=== PATIENT | female | born 1995 | race Caucasian/White ===

== ENCOUNTER 2023-12-11 16:52 | Outpatient (CLI) | payer OTHER ==
--- NOTE | 2023-12-12 06:19 | XRAY Report ---
PROCEDURE: Ankle 3+V RT INDICATIONS: EFFUSION OF RT ANKLE TECHNIQUE: 3 views of the ankle were acquired. COMPARISON: None. FINDINGS: Bones: No fractures or dislocations. Ankle mortise is normally aligned. No suspicious bony lesions . Soft tissues: Small tibiotalar joint effusion. Achilles tendon appears normal. IMPRESSION: Small tibiotalar joint effusion. Otherwise, no fracture or dislocation of the right ankle. Reviewed by: Warren Hebert MD on 12/12/2023 6:17 AM PDT Approved by: Warren Hebert MD on 12/12/2023 6:17 AM PDT Station ID: [id number]
== END 2023-12-11 16:53 | disposition home or self-care (01) ==
LOC: DI 16:52
PROVIDERS: ATTEND Physician Assistant Medical
DX: M25.471 Effusion, right ankle (principal)